=== PATIENT | male | born 1975 | race Two or more races ===

== ENCOUNTER 2021-10-20 13:49 | Emergency (ER) | payer OTHER ==
[~2021-10-20] VITALS: Ht 167.6 cm; Wt 90.7 kg
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
[2021-10-20] MEDS ORDERED: ACETAMINOPHEN ES 500 MG TABLET PO ONE (15:00)
[2021-10-20] MEDS ORDERED: ACETAMINOPHEN ES 500 MG TABLET ONE (15:06)
--- NOTE | 2021-10-20 15:53 | NUR ---
TAKEN TO CT
[2021-10-20] MEDS ORDERED: LIDOCAINE HCL/PF 1% 30 ML VIAL TP ONE (16:00)
[2021-10-20] MEDS ORDERED: LIDOCAINE HCL/MPF 1% 30 ML VIAL IJ ONE (16:18)
--- NOTE | 2021-10-20 17:14 | NUR ---
LEFT TOE WOUND CARE MIR AND STITCHES DONE BY LINDA TAVREAS
[2021-10-20] MEDS ORDERED: HYDROCODONE/APAP 5/325MG TABLET ONE (17:57)
[2021-10-20] MEDS ORDERED: HYDROCODONE/APAP 5/325MG TABLET PO ONE (18:00)
--- NOTE | 2021-10-20 19:00 | NUR ---
CALLED [facility] FOR READ.
--- NOTE | 2021-10-20 19:20 | NUR ---
PAGED PODIATRY. MESSAGE LEFT.
--- NOTE | 2021-10-20 19:25 | NUR ---
REC'D REPORT FROM NERY AARON FOR [facility]
--- NOTE | 2021-10-20 20:22 | NUR ---
PAGED PODIATRY AGAIN, NO ANSWER.
[2021-10-20] MEDS ORDERED: HYDR-4209 PO (20:53)
[2021-10-20] MEDS ORDERED: CEPH500C2 PO (20:53)
--- NOTE | 2021-10-20 20:56 | NUR ---
Patient discharged to home in stable condition. Written and verbal after care instructions given. Patient verbalizes understanding of instruction. Pt wheeled out to family's car.
[2021-10-20 20:59] VITALS: BP 132/77
== END 2021-10-20 21:00 | disposition home or self-care (01) ==
LOC: ER 13:52
DX: S92.405A Nondisplaced unspecified fracture of left great toe, initial encounter for closed fracture (principal); S91.312A Laceration without foreign body, left foot, initial encounter; V28.4XXA Motorcycle driver injured in noncollision transport accident in traffic accident, initial encounter; Y93.89 Activity, other specified; Y92.89 Other specified places as the place of occurrence of the external cause; Y99.8 Other external cause status
CPT/HCPCS: 12001; 73630; 73700; 99284; J3490 ×2